=== PATIENT | female | born 1975 | race Caucasian/White ===

== ENCOUNTER 2016-11-21 20:19 | Emergency (ER) | payer BC ==
[~2016-11-21] VITALS: Ht 160 cm; Wt 55.8 kg
[2016-11-21 20:23] VITALS: BP 127/96
--- NOTE | 2016-11-21 20:48 | NUR ---
PAC PRUSHA AT BEDSIDE FOR LAC REPAIR
[2016-11-21] MEDS ORDERED: TDAP [DIPH/PERTUSSIS/TET] 0.5 ML VIAL IM ONE ×2 (20:54→21:00)
[2016-11-21] MEDS ORDERED: LIDOCAINE HCL/PF 1% 30 ML VIAL TP ONE (21:00)
== END 2016-11-21 21:07 | disposition home or self-care (01) ==
LOC: ER 20:19
DX: S61.212A Laceration without foreign body of right middle finger without damage to nail, initial encounter (principal); K50.90 Crohn's disease, unspecified, without complications; Z23 Encounter for immunization; W26.0XXA Contact with knife, initial encounter; Y93.89 Activity, other specified; Y92.89 Other specified places as the place of occurrence of the external cause; Y99.8 Other external cause status
CPT/HCPCS: 12001; 90471; 90715; 99283; A4606; A6402; J3490; Z7610